=== PATIENT | male | born 1995 | race Caucasian/White ===

== ENCOUNTER 2018-12-02 11:17 | Emergency (ER) | payer BC ==
[~2018-12-02] VITALS: Ht 195.6 cm; Wt 91.6 kg
[2018-12-02 11:25] VITALS: BP 131/72
--- NOTE | 2018-12-02 11:53 | NUR ---
Patient discharged to home in stable condition. Written and verbal after care instructions given. Patient verbalizes understanding of instruction. Ambulatory Stable
== END 2018-12-02 11:53 | disposition home or self-care (01) ==
LOC: ER 11:17
DX: J03.90 Acute tonsillitis, unspecified (principal); Z88.0 Allergy status to penicillin; Z60.2 Problems related to living alone
CPT/HCPCS: 86403-TC; 87070-TC